=== PATIENT | male | born 1980 | race Two or more races ===

== ENCOUNTER → 2019-06-12 07:15 | Outpatient (CLI) | payer BC, SELFPAY ==
[2019-06-12 06:54] VITALS: BMI 23.5
--- NOTE | 2019-06-12 07:15 | VAS_PTH ---
PATIENT: MAHDI GRACIELA [facility][id number] AGE/SX: 45/M ROOM: RE06/12/[address]: Dr. Tanvir Perez MD : 1980 BED: DIS: SPEC #: [id number] RECD: 06/14/19 07:20 STATUS: STEVEN MALA #: [id number] RACHEL: 06/12/19 07:[address]: Tanvir Perez DEPT: SURGICAL PATHOLOGY RECD BY: Lonnie Perry ENTERED: 06/14/19 11:37 SP TYPE: VAS OTHR DR: Dr. Magdalena George MD Tissues: A - Vas deferens, NOS B - Vas deferens, NOS Procedures: Surgery Specimen Level II HEADER OPERATION: Bilateral partial vasectomy PRE-OP DIAGNOSIS: Sterilization TISSUE SUBMITTED: A - Left vas deferens, B - Right vas deferens MICROSCOPIC DIAGNOSIS A. Left vas deferens, partial vasectomy: Completely transected segment of vas deferens, no pathologic diagnosis. B. Right vas deferens, partial vasectomy: Completely transected segment of vas deferens, no pathologic diagnosis. LATOSHA:sohail 06/15/19 MICROSCOPIC DESCRIPTION Slides are reviewed. GROSS DESCRIPTION A - Received is one container designated left vas deferens. The specimen consists of a tubular piece of drummond soft tissue measuring 2 cm in length and 0.2 cm in diameter. The entire specimen is submitted in one cassette. It will be sectioned at the time of embedding. B - Received is one container designated right vas deferens. The specimen consists of a tubular piece of drummond soft tissue measuring 1.8 cm in length and 0.3 cm in diameter. The entire specimen is submitted in one cassette. It will be sectioned at the time of embedding. / LATOSHA:sohail 06/14/19 TC:4 CPT: 76279 x2
== END ==
PROVIDERS: Family Provider Internal Medicine; PCP Internal Medicine; Referring Provider Surgery; Visit Provider Surgery
DX: Z30.2 Encounter for sterilization (principal)
CPT/HCPCS: 88302

== ENCOUNTER 2020-03-20 17:34 | Emergency (ER) | payer BC, SELFPAY ==
[2019-06-24 07:28] VITALS: BMI 23.5
[2020-03-20 17:35] VITALS: BP 116/73; PULSE 61; RESP 18; TEMP 36.5; O2SAT 100; BMI 29.1
--- NOTE | 2020-03-20 18:44 | RAD_ITS ---
STUDY: X-RAY - RIGHT WRIST TECHNIQUE: 3 view(s) of the wrist were obtained. COMPARISON: None. FINDINGS: Previous ununited fracture of the tip of the ulnar styloid, otherwise normal visualized distal radius and ulna. Normal radiocarpal articulation. Normal distal radioulnar articulation. Normal carpal bones. Normal carpal articulations. Normal carpometacarpal articulation of the thumb. Normal second through fifth carpometacarpal articulations. Normal visualized metacarpal bones. The soft tissue structures are unremarkable. There is no demonstrated acute fracture. RAD/Wrist min 3 Views IMPRESSION: No acute fracture or dislocation. Electronically Signed: Alejandro Anders MD at 19:01 EDT , Service support ,
--- NOTE | 2020-03-20 18:44 | RAD_ITS ---
STUDY: X-RAY - LEFT WRIST REASON FOR EXAM: Male, 39 years old. PAIN S/P FALLING OFF LADDER TECHNIQUE: 3 view(s) of the wrist were obtained. COMPARISON: None. FINDINGS: Normal visualized distal radius and ulna. Normal radiocarpal articulation. Normal distal radioulnar articulation. Normal carpal bones. Normal carpal articulations. Normal carpometacarpal articulation of the thumb. Normal second through fifth carpometacarpal articulations. Normal visualized metacarpal bones. The soft tissue structures are unremarkable. There is no demonstrated acute fracture. RAD/Wrist min 3 Views IMPRESSION: Normal x-ray examination of the wrist. Electronically Signed: Alejandro Anders MD at 19:00 EDT , Service support ,
--- NOTE | 2020-03-20 18:44 | RAD_ITS ---
STUDY: X-RAY - PELVIS AND LEFT HIP REASON FOR EXAM: Male, 39 years old. PAIN S/P FALLING OFF LADDER TECHNIQUE: 3 views of the pelvis and hip. COMPARISON: None. FINDINGS: There is a non-specific bowel gas pattern. Normal visualized soft tissue structures. Normal bilateral iliac wings, sacroiliac joints and visualized sacrum. Normal bilateral superior and inferior pubic rami. Normal pubic symphysis. Normal bilateral ischial tuberosities. Normal visualized femoral head. Normal acetabulum. Normal hip joint. RAD/HIP, UNI W/ Pelvis 2-3 Views IMPRESSION: Normal x-ray examination of the pelvis and hip. Electronically Signed: Alejandro Anders MD at 19:02 EDT , Service support ,
[2020-03-20] MEDS: Diphth,Pertuss(Acell),Tet Vac 0.5 ML Vial IM (19:18)
[2020-03-20] MEDS: HYDROcodone Bitartrate/Apap 5/325 Tablet PO (19:18)
--- NOTE | 2020-03-20 20:06 | ED.VIS.FALL ---
History of Present Illness Chief Complaint: Fall Informant: Patient Occurred: Today Mechanism/Context: - - Fell off ladder Fall from Height (ft): 5 Location: Left buttocks Quality of Pain: Throbbing Narrative: Patient is a 39-year-old male with no significant past medical history presenting with pain in his left buttocks. Patient fell off of 4 to 5 foot ladder earlier today. He hit the ladder while he fell down. He then caught himself with both wrist. He has pain in his wrist, and abrasion to his right elbow as well as significant pain in his left buttocks. He states he did not hit his head had no loss of consciousness. It was mechanical fall. Patient states after the fall he did feel little lightheaded. He went to lay in bed and then could not get out of bed because of pain. He states he started to feel very anxious. This is when he came to the emergency room. He did take ibuprofen prior to arrival. He is not sure his last tetanus was. He denies any other complaints at this time. Past Medical History - Allergies and Home Meds Allergies/Adverse Reactions: Allergies folic acid Allergy (Verified 03/20/20 17:37) Other ITCHING, ERRYTHEMIA, EDEMA Primary Care Physician: Magdalena George MD [Primary Care Provider] - Past Medical History: None Surgical History: no surgical history Lives: Spouse/ Significant Other Smoking Status: Never smoker - Family History Maternal Family History: Family History (Last Reviewed 06/24/19 @ 07:28 by Radha Dunaway) Father Depression Family History: Reports: Diabetes - Controlled Review of Systems General: Denies: Chills, Fever, Sweats Eyes: Denies: Visual changes - bilaterally, Diplopia ENT: Denies: Rhinorrhea, Sore throat Cardiovascular: Denies: Chest pain, Palpitations Respiratory: Denies: Dyspnea, Cough, Dyspnea on exertion Gastrointestinal: Denies: Abdominal pain, Nausea, Vomiting Genitourinary: Denies: Dysuria, Hematuria, Frequency Musculoskeletal: Reports: Extremity Pain - Right elbow, bilateral wrist, left buttocks. Denies: Swelling Skin: Reports: Abrasions - Right elbow. Denies: Rash, Wounds Neurological: Denies: Headache, Weakness, Numbness Hematologic: Denies: Easy bruising, Easy bleeding Physical Exam Vital Signs/Narrative: Vital Signs Temp Pulse Resp BP Pulse Ox 03/20/20 17:35 97.7 F L 61 18 116/73 100 Inital Vital Signs reviewed: Yes General: Well nourished, Well developed Head: Normocephalic, Atraumatic Eyes: Perrl, EOMI ENT: TM's clear, No hemotympanum or drainage, No trauma Neck: Nontender, Full ROM Cardiovascular: Regular rate, Regular rhythm, No murmurs Respiratory: No distress, CTA bilaterally, Chest nontender Abdomen: Soft, Nontender, Nondistended, Normal bowel sounds Back: Nontender Extremeties: Right arm?normal range of motion, no joint abnormalities or effusions. Superficial abrasion over the right olecranon process. Right wrist?normal range of motion however tenderness to palpation and slight abrasion at the right palm. Left arm?normal range of motion, no joint abnormalities or effusions. Left wrist?superficial abrasion over the left palm with normal range of motion and no bony tenderness palpation. Pelvis is stable. Extremities are equal length with no rotation. Left hip has no bony tenderness palpation but he does have significant tenderness palpation of the gluteus muscles. There is an overlying abrasion but no associated hematoma Skin: Normal color, No rash, Trauma - 1 cm abrasion with some bleeding to the right olecranon process 5 cm linear abrasion/ecchymosis of the left buttocks consistent with hitting a ladder step Neurological: Alert, Oriented x3, Cranial nerves II-XII grossly intact, Normal Strength, Normal Sensation, Normal Gait Psychological: Normal affect Diagnostic/Tx/Re-eval Clinical Impression(s) from Imaging Studies Hip/Pelvis X-Ray 03/20/20 18:44 IMPRESSION: Normal x-ray examination of the pelvis and hip. Electronically Signed: Alejandro Anders MD at 19:02 EDT , Service support , Wrist X-Ray 03/20/20 18:44 IMPRESSION: Normal x-ray examination of the wrist. Electronically Signed: Alejandro Anders MD at 19:00 EDT , Service support , Wrist X-Ray 03/20/20 18:44 IMPRESSION: No acute fracture or dislocation. Electronically Signed: Alejandro Anders MD at 19:01 EDT , Service support , - Medical Decision Making Patient is evaluated after mechanical fall off of a ladder. He appears significantly uncomfortable but is otherwise nontoxic and in no acute distress. He is given [place] for pain control. Patient took an NSAID prior to arrival. X-rays obtained not show any acute bony abnormality. Likely these are all soft tissue injuries. Patient be discharged home with a very short course of [place] as well as Motrin 600 for pain control. His tetanus is updated. His elbow abrasion is deeper but does not require laceration repair. Localized wound care is applied. Patient did not hit his head and I do not think head or neck imaging is indicated at this time. Patient is counseled on signs and symptoms requiring return to the emergency room. Patient verbalizes agreement and understand this plan. Patient discharged home in stable and improved condition. ED Disposition - Plan for ED Patient: Disposition: Home or Assisted Living Diagnosis: Left buttock pain, Wrist pain, acute, Abrasion of right elbow, initial encounter Instructions: ED Abrasion, ED SOFT TISSUE CONTUSION, ED Mechanical Fall Prescriptions: Ibuprofen [Motrin] 800 mg PO TID PRN PRN #20 tab PRN Reason: Pain Score 1-10/10 Transmission Status: Received by [id number] Hydrocodone Bitart/Apap 5-325 [[place] 5MG-325MG] 1 tab PO Q6H PRN PRN 3 Days #10 tab PRN Reason: Pain Transmission Status: Received by [id number] Referrals: Magdalena George MD [Primary Care Provider] -
[2020-03-20 20:31] VITALS: BP 112/74; PULSE 73; RESP 18; O2SAT 97
--- OUTSIDE RECORDS SUMMARY | 2020-08-22 08:49 | XMS RPT_ITS | CCD ---
:1980 External Reference #:[id number] Author Organization [facility] Care Team Providers Name Role Phone Eun Peters MD Unavailable Allergies Reported Allergen Reaction(s) Severity Date of Onset Location folic acid Critical, Critical 07-08-2017 - [facility] ([id number]) Problems Category Problem Name Status Date Location Unclassified Appendectomy Active 07-08-2017 - [facility] ([id number]) Results Result Name Value Range Unit Interpretation Flag Date Location vitamin d 25 hydroxy on 2020-08-21 Vitamin D 25 Hydroxy 18.6 31.0-80.0 ng/mL Low 0 [facility] ([id number]) Comment: Result Comment: Classificati on of 25 [place] Vitamin D status: Insufficiency/Moderate Defic iency: < or = 30 ng/mL Sufficiency/Optimal Levels: 31 to 80 ng/mL Toxicity: > 100 ng/mL Test performed by chemilumin escent immunoassay. Performed By: #### B12, VITD ####[facility] [id number] [place], [place] [phone] vitamin b12 on 2019 Cobalamin (Vitamin B12) 796 957-9055 pg/mL Normal [address] [facility] [Mass/Vol] [place] ([id number]) Comment: Performed By: #### B12, VITD ####[facility] [address] [place], [place] [phone] progress on 2020-05 PROGRESS HNO ID: [id number] Normal 05-25-[address] [facility] Author: Mi Borges LPN [place] ([id number]) Service: ? Author Type: ? Type: Progress Notes Filed: 05/25/2020 1:03 PM Note Text: Patient presents for B-12 injection. Denies any problems at this time. Patient brought own medication. Patient instructed on any SE of medication, verbalized understanding and agreed to proceed w ith treatment. Tolerated injection well. Mi Borges LPN PROGRESS HNO ID: [id number] Normal 05-25-[address] [facility] Author: Marquez Cheatham) Thompson [place] ([id number]) Service: ? Author Type: Nurse Practitioner Type: Progress Notes Filed: 05/25/2020 8:56 AM Note Text: The following approved medication requests have been transmi tted electronically. Signed Prescriptions Disp Refills cyanocobalamin 1,000 mcg injection Marquez Riggs APRN.ERIBERTO [facility] (FAMP[facility]) Normal [address] [place] [address] [facility] MAHDI JULEITA ([id number]) 1980 [facility] Date Time Provider Department ([id number]) 05/25/20 12:30 PM [facility] During your visit today, we recorded the following informati on about you: Mi Borges LPN 05/25/2020 1:03 PM Signed Patient presents for B-12 injection. Den ies any problems at this time. Patient brought own medication. Patient instruct ed on any SE of medication, verbalized understanding and agreed to proceed with treatme nt. Tolerated injection well. Mi Borges LPN Referring Provider: SOCRATES GOLDMAN [[id number]] Allergies As of Date: 05/25/2020 Noted Allergy Reaction FOLIC ACID 07/16/2017 9 - Itching Date Reviewed: 05/25/2020 Reviewed by: Mi Borges LPN - Fully Assessed Reason for Visit: B-12 Injection [247] Primary Visit Diagnosis:Vitamin B 12 deficiency [E53.8] Prescriptions as of 05/25/2020 Sig: CYANOCOBALAMIN (VIT B-12) 1,0* Inject 1 mL intramuscularly o * BUPROPION HCL 75 MG TABLET Take 1 tablet by mouth twice * Problem List As Of Date: 05/25/2020 (None) Encounter Status:Closed by MI BORGES LPN on 05/25/20 progress on 2020-04 PROGRESS HNO ID: [id number] Normal 04-11-[address] [facility] Author: Mi Borges LPN [place] ([id number]) Service: ? Author Type: ? Type: Progress Notes Filed: 04/11/2020 12:25 PM Note Text: Patient presents for B-12 injection. Denies any problems at this time. Patient instructed on any SE of medication, verbalized under standing and agreed to proceed with treatment. Brought own medication. To lerated injection well. Mi Borges LPN cnnurse on [facility] Nurse Visit (FAMPWS) Normal 0 [place] [facility] MAHDI JULIETA ([id number]) 1980 [facility] Time Provider Department ([id number]) 04/11/20 12:30 PM [facility] During your visit today, we recorded the following informati on about you: Mi Borges LPN 04/11/2020 12:25 PM Signed Patient presents for B-12 injection. Den ies any problems at this time. Patient instructed on any SE of medication, verbalized understanding and agreed to proceed with treatment. Brought own medication. Tolerated in jection well. Mi Borges LPN Referring Provider: SOCRATES GOLDMAN [[id number]] Allergies As of Date: 04/11/2020 Noted Allergy Reaction FOLIC ACID 07/16/2017 9 - Itching Date Reviewed: 04/11/2020 Reviewed by: Mi Borges LPN - Fully Assessed Reason for Visit: B-12 Injection [247] Primary Visit Diagnosis:Vitamin B 12 deficiency [E53.8] Prescriptions as of 04/11/2020 Sig: CYANOCOBALAMIN (VIT B-12) 1,0* Inject 1 mL intramuscularly o * BUPROPION HCL 75 MG TABLET Take 1 tablet by mouth twice * Problem List As Of Date: 04/11/2020 (None) Encounter Status:Closed by MI BORGES LPN on 04/11/20 progress on 2019-12 PROGRESS HNO ID: [id number] Normal 12-24-[address] [facility] Author: Mi Borges LPN [place] ([id number]) Service: ? Author Type: ? Type: Progress Notes Filed: 12/24/2019 12:34 PM Note Text: Patient presents for B-12 injection. Denies any problems at this time. Brought own medication. Patient instructed on any SE of medi cation, verbalized understanding and agreed to proceed with treatmen t. Tolerated injection well. Mi Borges LPN cnnurse on [facility] Nurse Visit (FAMPWS) Normal 0 [place] [facility] MAHDI JULIETA ([id number]) 1980 [facility] Time Provider Department ([id number]) 12/24/19 12:30 PM [facility] During your visit today, we recorded the following informati on about you: Mi Borges LPN 12/24/2019 12:34 PM Signed Patient presents for B-12 injection. Den ies any problems at this time. Brought own medication. Patient instructed on any SE of medication, verbalized understanding and agreed to proceed with treatme nt. Tolerated injection well. Mi Borges LPN Referring Provider: SOCRATES GOLDMAN [[id number]] Allergies As of Date: 12/24/2019 Noted Allergy Reaction FOLIC ACID 07/16/2017 9 - Itching Date Reviewed: 12/24/2019 Reviewed by: Mi Borges LPN - Fully Assessed Reason for Visit: B-12 Injection [247] Primary Visit Diagnosis:Vitamin B 12 deficiency [E53.8] Prescriptions as of 12/24/2019 Sig: CYANOCOBALAMIN (VIT B-12) 1,0* Inject 1 mL intramuscularly o * BUPROPION HCL 75 MG TABLET Take 1 tablet by mouth twice * Problem List As Of Date: 12/24/2019 (None) Encounter Status:Closed by MI BORGES LPN on 12/24/19 progress on 2019-11 PROGRESS HNO ID: [id number] Normal 11-25-[address] [facility] Author: Mi Borges LPN [place] ([id number]) Service: ? Author Type: ? Type: Progress Notes Filed: 11/25/2019 12:42 PM Note Text: Patient presents for B-12 injection. Denies any problems at this time. Patient instructed on any SE of medication, verbalized under standing and agreed to proceed with treatment. Patient brought own medica tion. Tolerated injection well. Mi Borges LPN cnnurse on [facility] Nurse Visit (FAMPWS) [place] 0 [place] [facility] MAHDI JULIETA ([id number]) 1980 [facility] Time Provider Department ([id number]) 11/25/19 12:45 PM [facility] During your visit today, we recorded the following informati on about you: Mi Borges LPN 11/25/2019 12:42 PM Signed Patient presents for B-12 injection. Den ies any problems at this time. Patient instructed on any SE of medication, verbalized understanding and agreed to proceed with treatment. Patient brought own medication. To lerated injection well. Mi Borges LPN Referring Provider: SOCRATES GOLDMAN [[id number]] Allergies As of Date: 11/25/2019 Noted Allergy Reaction FOLIC ACID 07/16/2017 9 - Itching Date Reviewed: 10/07/2017 Reviewed by: Swathi Pepper LPN - Fully Assessed Reason for Visit: B-12 Injection [247] Primary Visit Diagnosis:Vitamin B 12 deficiency [E53.8] Prescriptions as of 11/25/2019 Sig: CYANOCOBALAMIN (VIT B-12) 1,0* Inject 1 mL intramuscularly o * BUPROPION HCL 75 MG TABLET Take 1 tablet by mouth twice * Problem List As Of Date: 11/25/2019 (None) Encounter Status:Closed by MI BORGES LPN on 11/25/19 progress on 2019-10 PROGRESS HNO ID: [id number] Normal 10-21-[address] [facility] Author: Mi Borges LPN [place] ([id number]) Service: ? Author Type: ? Type: Progress Notes Filed: 10/21/2019 12:34 PM Note Text: Patient presents for B-12 injection. Denies any problems at this time. Patient instructed on any SE of medication, verbalized under standing and agreed to proceed with treatment. Tolerated injection well. Mi Borges LPN obsolete on 2019-10 OBSOLETE Refill (FAMPWS) Normal 10-21-2019 [facility] MAHDI JULIETA ([id number]) 1980 [facility] Date Time Provider Department ([id number]) 10/21/19 [facility] During your visit today, we recorded the following informati on about you: Mi Borges LPN 10/21/2019 12:37 PM Signed Patient requesting to have script for his B-12 sent to local pharmacy so can have filled through his prescription coverage and brought to office for injection. Currently being charged through his medical coverage a co-pay for both the medication and the administrati on (over $50 per month). Please review and advise. Mi Riggs APRN.[employer] 10/21/2019 2:30 PM Signed The following approved medic ation requests have been transmitted electronically. Signed Prescriptions Disp Refills cyanocobalamin (VITAMIN B-12) 1,000 mcg/mL soln 1 mL 5 Sig: Inject 1 mL intramuscularly once every month. 1 DOSE MO NTHLY SONA: No Authorizing Provider: MARQUEZ RIGGS ([employer]) Marquez Riggs APRN.ERIBERTO Alfaro LPN 10/21/2019 3:28 PM Signed Unable to leave message for patient. Voice mailbox full. Ina Calloway, RN, RN 10/21/2019 4:19 PM Signed Attendify message sent to pt of approved refill request. Allergies As of Date: 10/21/2019 Noted Allergy Reaction FOLIC ACID 07/16/2017 9 - Itching Date Reviewed: 10/07/2017 Reviewed by: Swathi Pepper LPN - Fully Assessed Reason for Visit: Refill Request [94] Order(s):cyanocobalamin (VITAMIN B-12) 1,000 mcg/mL solnInje ct 1 mL intramuscularly once every month. 1 DOSE MONTHLYDisp: 1 mLRf l: 5 Prescriptions as of 10/21/2019 Sig: CYANOCOBALAMIN (VIT B-12) 1,0* Inject 1 mL intramuscularly o * BUPROPION HCL 75 MG TABLET Take 1 tablet by mouth twice * Problem List As Of Date: 10/21/2019 (None) Prescriptions ordered this encounter Disp Refills Start End CYANOCOBALAMIN (VIT B-12) 1,000 MCG/* 1 mL 5 10/21/2019 06/0 07/2020 Route: INTRAMUSCULA Sig: Inject 1 mL intramuscularly once every month. 1 DOSE MO NTHLY Medications Discontinued During This Encounter cyanocobalamin 1,000 mcg injection 06/15/2019 10/21/2019 Route: INTRAMUSCULAR Sig: Disc: Reason for discontinue is not on file. cyanocobalamin (VITAMIN B-12) 1,000 * 1 mL 11 06/02/201910/10 Class: In Office Route: INTRAMUSCULAR Sig: Inject 1 mL intramuscularly once every month. 1 DOSE MO NTHLY Disc: Reason for discontinue is not on file. Encounter Status:Closed by CLARENCE CALLOWAY on 10/21/19 [facility] (F[facility]) Normal [address] [place] [address] [facility] MAHDI JULIEAT ([id number]) 1980 M [facility] Time Provider Department ([id number]) 10/21/19 12:30 PM [facility] During your visit today, we recorded the following informati on about you: Mi Borges LPN 10/21/2019 12:34 PM Signed Patient presents for B-12 injection. Den ies any problems at this time. Patient instructed on any SE of medication, verbalized understanding and agreed to proceed with treatment. Tolerated injection well. Mi Borges LPN Referring Provider: SOCRATES GOLDMAN [[id number]] Allergies As of Date: 10/21/2019 Noted Allergy Reaction FOLIC ACID 07/16/2017 9 - Itching Date Reviewed: 10/07/2017 Reviewed by: Swathi Pepper LPN - Fully Assessed Reason for Visit: B-12 Injection [247] Primary Visit Diagnosis:Vitamin B 12 deficiency [E53.8] Prescriptions as of 10/21/2019 Sig: CYANOCOBALAMIN (VIT B-12) 1,0* Inject 1 mL intramuscularly o * BUPROPION HCL 75 MG TABLET Take 1 tablet by mouth twice * Problem List As Of Date: 10/21/2019 (None) Encounter Status:Closed by MI BORGES LPN on 10/21/19 progress on 2019-09 PROGRESS HNO ID: [id number] Normal 09-22-[address] [facility] Author: Mi Borges LPN [place] ([id number]) Service: ? Author Type: ? Type: Progress Notes Filed: 09/22/2019 12:30 PM Note Text: Patient presents for B-12 injection. Denies any problems at this time. Patient instructed on any SE of medication, verbalized under standing and agreed to proceed with treatment. Tolerated injection well. Mi Borges LPN cnnurse on [facility] Nurse Visit (FAMPWS) Normal [address] [place] [address] [facility] MAHDI JULIETA ([id number]) 1980 M [facility] Time Provider Department ([id number]) 09/22/19 12:30 PM [facility] During your visit today, we recorded the following informati on about you: Mi Borges LPN 09/22/2019 12:30 PM Signed Patient presents for B-12 injection. Den ies any problems at this time. Patient instructed on any SE of medication, verbalized understanding and agreed to proceed with treatment. Tolerated injection well. Mi Borges LPN Referring Provider: SOCRATES GOLDMAN [[id number]] Allergies As of Date: 09/22/2019 Noted Allergy Reaction FOLIC ACID 07/16/2017 9 - Itching Date Reviewed: 10/07/2017 Reviewed by: Swathi Pepper LPN - Fully Assessed Reason for Visit: B-12 Injection [247] Primary Visit Diagnosis:Vitamin B 12 deficiency [E53.8] Prescriptions as of 09/22/2019 Sig: CYANOCOBALAMIN (VIT B-12) 1,0* Inject 1 mL intramuscularly o * BUPROPION HCL 75 MG TABLET Take 1 tablet by mouth twice * Problem List As Of Date: 09/22/2019 (None) Encounter Status:Closed by MI BORGES LPN on 09/22/19 office visit: f/u s/pt lap appendectomy 06/05/17 on 2017-07-08 Documentation of Done Invalid 07-08-2017 [facility] Surgical current medications Interpretation Code 07-08-2017 [facility] (procedure) ([id number]) Documentation of T Invalid 07-08-2017 [facility] Surgical current medications Interpretation Code 07-08-2017 [facility] (procedure) ([id number]) Fall risk assessment No Invalid [facility] Surgical Interpretation Code 07-08-2017 [facility] ([id number]) Protein mass conc Done 07-08-2017 [facility] 07-08-2017 [facility] ([id number]) Protein mass conc T 07-08-2017 [facility] Surgical 07-08-2017 [facility] ([id number]) Vital Signs Vital Sign Description Value / Unit Date Location The following section is limited to 5 en tries per type and includes entries from the following time range: [id number] - [id number] 9. BMI (Body Mass Index) 22.05 kg/m2 07-08-2017 - 07-08-2017 [facility] ([id number]) Body Temperature 97.9 [degF] 07-08-2017 - 07-08-2017 [facility] ([id number]) BP Diastolic 68 mm[Hg] 07-08-2017 - 07-08-2017 [facility] ([id number]) BP Systolic 110 mm[Hg] 07-08-2017 - 07-08-2017 [facility] ([id number]) Height 177.98 cm 07-08-2017 - 07-08-2017 [facility] ([id number]) Pulse (Heart Rate) 68 /min 07-08-2017 - 07-08-2017 [facility] S [facility] ([id number]) Respiratory Rate 18 /min 07-08-2017 - 07-08-2017 [facility] ([id number]) Weight 69.85 kg 07-08-2017 - 07-08-2017 [facility] ([id number]) Procedures Procedure Name Date Provider Location Appendectomy 07-08-2017 [facility] ([id number]) Plan of Treatment Plan Description Date Location Appointment Appointment 07-08-2017 - [facility] 07-08-2017 ([id number]) Follow Up as needed Follow Up as needed 07-08-2017 - [facility] 07-08-2017 ([id number]) Summary Purpose Family History No Family History Records Found Advance Directives No Advanced Directives Records Found Additional Source Comments FOR RECORDS PERTAINING TO PATIENTS WHO ARE OR HAVE BEEN ENROLLED IN A CHEMICAL DEPENDENCY/SUBSTANCE ABUSE PROGRAM, SOME INFORMATION MAY BE OMITTED. This clinical summary was aggregated from multiple sources. Caution should be exercised in using it in the provision of clinical care. This summary normalizes information from multiple sources, and as a consequence, information in this document may materially changethe coding, format and clinical context of patient data. In addition, data may be omittedin some cases. CLINICAL DECISIONS SHOULD BE BASED ON THE PRIMARY CLINICAL RECORDS. [facility] provides no warranty or guarantee of the accuracy or completeness of information in this document. UNRECOGNIZED CONTENT PROVIDED BELOW FOR UNRECOGNIZED SECTION No Status Records Found UNRECOGNIZED CONTENT PROVIDED BELOW FOR UNRECOGNIZED SECTION INFORMATION SOURCE DATE CREATED AUTHOR AUTHOR'S ORGANIZATIO N 08/22/2020 [facility] hannah
--- OUTSIDE RECORDS SUMMARY | 2020-08-22 08:52 | XMS RPT_ITS | CCD ---
:1980 External Reference #:[id number] Author Organization [facility] Care Team Providers Name Role Phone Eun Peters MD Unavailable Allergies Reported Allergen Reaction(s) Severity Date of Onset Location folic acid Critical, Critical 07-08-2017 - [facility] ([id number]) Problems Category Problem Name Status Date Location Unclassified Appendectomy Active 07-08-2017 - [facility] ([id number]) Results Result Name Value Range Unit Interpretation Flag Date Location vitamin d 25 hydroxy on 2020-08-21 Vitamin D 25 Hydroxy 18.6 31.0-80.0 ng/mL Low 0 [facility] ([id number]) Comment: Result Comment: Classificati on of 25 [place] Vitamin D status: Insufficiency/Moderate Defic iency: < or = 30 ng/mL Sufficiency/Optimal Levels: 31 to 80 ng/mL Toxicity: > 100 ng/mL Test performed by chemilumin escent immunoassay. Performed By: #### B12, VITD ####[facility] [id number] [place], [place] [phone] vitamin b12 on 2019 Cobalamin (Vitamin B12) 121 108-6095 pg/mL Normal 2019 [facility] [Mass/Vol] [place] ([id number]) Comment: Performed By: #### B12, VITD ####[facility] [id number] [place], [place] [phone] progress on 2020-05 PROGRESS HNO ID: [id number] Normal 05-25-2020 [facility] Author: Mi Borges LPN [place] ([id number]) Service: ? Author Type: ? Type: Progress Notes Filed: 05/25/2020 1:03 PM Note Text: Patient presents for B-12 injection. Denies any problems at this time. Patient brought own medication. Patient instructed on any SE of medication, verbalized understanding and agreed to proceed w ith treatment. Tolerated injection well. Mi Borges LPN PROGRESS HNO ID: [id number] Normal 05-25-2020 [facility] Author: Marquez Cheatham) Thompson [place] ([id number]) Service: ? Author Type: Nurse Practitioner Type: Progress Notes Filed: 05/25/2020 8:56 AM Note Text: The following approved medication requests have been transmi tted electronically. Signed Prescriptions Disp Refills cyanocobalamin 1,000 mcg injection Marquez Riggs APRN.ERIBERTO [facility]) Normal [address] [place] [address] [facility] MAHDI JULIETA ([id number]) 1980 [facility] Date Time Provider Department ([id number]) 05/25/20 12:30 PM [facility] During your visit today, we recorded the following informati on about you: Mi Borges LPN 05/25/2020 1:03 PM Signed Patient presents for B-12 injection. Den ies any problems at this time. Patient brought own medication. Patient instruct ed on any SE of medication, verbalized understanding and agreed to proceed with treatme nt. Tolerated injection well. Mi Borges LPN Referring Provider: SOCRATES GOLDMAN [[id number]] Allergies As of Date: 05/25/2020 Noted Allergy [...] 05/25/20 progress on 2020-04 PROGRESS HNO ID: [id number] Normal 04-11-2020 [facility] Author: Mi Borges LPN [place] ([id number]) Service: ? Author Type: ? Type: Progress Notes Filed: 04/11/2020 12:25 PM Note Text: Patient presents for B-12 injection. Denies any problems at this time. Patient instructed on any SE of medication, verbalized under standing and agreed to proceed with treatment. Brought own medication. To lerated injection well. Mi Borges LPN cnnurse on [facility] Nurse Visit (FAMPWS) Normal 0 [place] [facility] MAHDI JULIETA ([id number]) 1980 [facility] Time Provider Department ([id number]) 04/11/20 12:30 PM [facility] During your visit today, we recorded the following informati on about you: Mi Borges LPN 04/11/2020 12:25 PM Signed Patient presents for B-12 injection. Den ies any problems at this time. Patient instructed on any SE of medication, verbalized understanding and agreed to proceed with treatment. Brought own medication. Tolerated in jection well. Mi Borges LPN Referring Provider: SOCRATES GOLDMAN [[id number]] Allergies As of Date: 04/11/2020 Noted Allergy [...] 04/11/20 progress on 2019-12 PROGRESS HNO ID: [id number] Normal 12-24-2019 [facility] Author: Mi Borges LPN [place] ([id number]) Service: ? Author Type: ? Type: Progress Notes Filed: 12/24/2019 12:34 PM Note Text: Patient presents for B-12 injection. Denies any problems at this time. Brought own medication. Patient instructed on any SE of medi cation, verbalized understanding and agreed to proceed with treatmen t. Tolerated injection well. Mi Borges LPN cnnurse on [facility] Nurse Visit (FAMPWS) Normal 0 [place] [facility] MAHDI JULIETA ([id number]) 1980 [facility] Time Provider Department ([id number]) 12/24/19 12:30 PM [facility] During your visit today, we recorded the following informati on about you: Mi Borges LPN 12/24/2019 12:34 PM Signed Patient presents for B-12 injection. Den ies any problems at this time. Brought own medication. Patient instructed on any SE of medication, verbalized understanding and agreed to proceed with treatme nt. Tolerated injection well. Mi Borges LPN Referring Provider: SOCRATES GOLDMAN [[id number]] Allergies As of Date: 12/24/2019 Noted Allergy [...] 12/24/19 progress on 2019-11 PROGRESS HNO ID: [id number] Normal 11-25-2019 [facility] Author: Mi Borges LPN [place] ([id number]) Service: ? Author Type: ? Type: Progress Notes Filed: 11/25/2019 12:42 PM Note Text: Patient presents for B-12 injection. Denies any problems at this time. Patient instructed on any SE of medication, verbalized under standing and agreed to proceed with treatment. Patient brought own medica tion. Tolerated injection well. Mi Borges LPN cnnurse on [facility] Nurse Visit (FAMPWS) [place] 0 [place] [facility] MAHDI JULIETA ([id number]) 1980 [facility] Time Provider Department ([id number]) 11/25/19 12:45 PM [facility] During your visit today, we recorded the following informati on about you: Mi Borges LPN 11/25/2019 12:42 PM Signed Patient presents for B-12 injection. Den ies any problems at this time. Patient instructed on any SE of medication, verbalized understanding and agreed to proceed with treatment. Patient brought own medication. To lerated injection well. Mi Borges LPN Referring Provider: SOCRATES GOLDMAN [[id number]] Allergies As of Date: 11/25/2019 Noted Allergy [...] 11/25/19 progress on 2019-10 PROGRESS HNO ID: [id number] Normal 10-21-2019 [facility] Author: Mi Borges LPN [place] ([id number]) Service: ? Author Type: ? Type: Progress Notes Filed: 10/21/2019 12:34 PM Note Text: Patient presents for B-12 injection. Denies any problems at this time. Patient instructed on any SE of medication, verbalized under standing and agreed to proceed with treatment. Tolerated injection well. Mi Borges LPN obsolete on 2019-10 OBSOLETE Refill (FAMPWS) Normal 10-21-2019 [facility] MAHDI JULIETA ([id number]) 1980 [facility] Date Time Provider Department ([id number]) 10/21/19 [facility] During your visit today, we recorded the [...] month). Please review and advise. Mi Riggs APRN.[employer]IC 10/21/2019 2:30 PM Signed The following approved medic ation requests have been transmitted electronically. Signed Prescriptions Disp Refills cyanocobalamin (VITAMIN B-12) 1,000 mcg/mL soln 1 mL 5 Sig: Inject 1 mL intramuscularly once every month. 1 DOSE MO NTHLY SONA: No Authorizing Provider: MARQUEZ RIGGS ([employer]CH[employer]IC) Marquez Riggs APRN.ERIBERTO Alfaro LPN 10/21/2019 3:28 PM Signed Unable to leave message for patient. Voice mailbox full. Ina Calloway, RN, RN 10/21/2019 4:19 PM Signed Vulevú message sent to pt of approved refill [...] by CLARENCE CALLOWAY on 10/21/19 [facility] ([facility]) Normal [address] [place] [address] [facility] MAHDI JULIETA ([id number]) 1980 [facility] Time Provider Department ([id number]) 10/21/19 12:30 PM [facility] During your visit today, we recorded the following informati on about you: Mi Borges LPN 10/21/2019 12:34 PM Signed Patient presents for B-12 injection. Den ies any problems at this time. Patient instructed on any SE of medication, verbalized understanding and agreed to proceed with treatment. Tolerated injection well. Mi Borges LPN Referring Provider: SOCRATES GOLDMAN [[id number]] Allergies As of Date: 10/21/2019 Noted Allergy [...] 10/21/19 progress on 2019-09 PROGRESS HNO ID: [id number] Normal 09-22-2019 [facility] Author: Mi Borges LPN [place] ([id number]) Service: ? Author Type: ? Type: Progress Notes Filed: 09/22/2019 12:30 PM Note Text: Patient presents for B-12 injection. Denies any problems at this time. Patient instructed on any SE of medication, verbalized under standing and agreed to proceed with treatment. Tolerated injection well. Mi Borges LPN cnnurse on [facility] Nurse Visit (FAMPWS) Normal [address] [place] [address] [facility] MAHDI JULIETA ([id number]) 1980 [facility] Time Provider Department ([id number]) 09/22/19 12:30 PM MD [facility] During your visit today, we recorded the following informati on about you: Mi Borges LPN 09/22/2019 12:30 PM Signed Patient presents for B-12 injection. Den ies any problems at this time. Patient instructed on any SE of medication, verbalized understanding and agreed to proceed with treatment. Tolerated injection well. Mi Borges LPN Referring Provider: SOCRATES GOLDMAN [[id number]] Allergies As of Date: 09/22/2019 Noted Allergy [...] on 2017-07-08 Documentation of Done Invalid 07-08-2017 [facility] Surgical current medications Interpretation Code 07-08-2017 [facility] (procedure) ([id number]) Documentation of T Invalid 07-08-2017 [facility] Surgical current medications Interpretation Code 07-08-2017 [facility] (procedure) ([id number]) Fall risk assessment No Invalid [facility] Interpretation Code 07-08-2017 [facility] ([id number]) Protein mass conc Done 07-08-2017 [facility] 07-08-2017 [facility] ([id number]) Protein mass conc T 07-08-2017 [facility] Surgical 07-08-2017 [facility] ([id number]) Vital Signs Vital Sign Description Value / Unit Date Location The following section is limited to 5 en tries per type and includes entries from the following time range: 20170708 - [id number] 9. BMI (Body Mass Index) 22.05 kg/m2 07-08-2017 - 07-08-2017 [facility] ([id number]) Body Temperature 97.9 [degF] 07-08-2017 - 07-08-2017 [facility] ([id number]) BP Diastolic 68 mm[Hg] 07-08-2017 - 07-08-2017 [facility] ([id number]) BP Systolic 110 mm[Hg] 07-08-2017 - 07-08-2017 [facility] ([id number]) Height 177.98 cm 07-08-2017 - 07-08-2017 [facility] ([id number]) Pulse (Heart Rate) 68 /min 07-08-2017 - 07-08-2017 [facility] ([id number]) Respiratory Rate 18 /min 07-08-2017 - 07-08-2017 [facility] ([id number]) Weight 69.85 kg 07-08-2017 - 07-08-2017 [facility] ([id number]) Procedures Procedure Name Date Provider Location Appendectomy 07-08-2017 [facility] ([id number]) Plan of Treatment Plan Description Date Location Appointment Appointment 07-08-2017 - [facility] 07-08-2017 ([id number]) Follow Up as needed Follow Up as needed 07-08-2017 - [facility] 07-08-2017 ([id number]) Summary Purpose Family History No Family History [...] BE BASED ON THE PRIMARY CLINICAL RECORDS. [facility] provides no warranty or guarantee of the accuracy or completeness of information in this document. UNRECOGNIZED CONTENT PROVIDED BELOW FOR UNRECOGNIZED SECTION No Status Records Found UNRECOGNIZED CONTENT PROVIDED BELOW FOR UNRECOGNIZED SECTION INFORMATION SOURCE DATE CREATED AUTHOR AUTHOR'S ORGANIZATIO N 08/22/2020 [facility] hannah
== END 2020-03-20 20:33 | disposition home or self-care (01) ==
PROVIDERS: Emergency Provider Emergency Medicine; PCP Internal Medicine
DX: S50.311A Abrasion of right elbow, initial encounter (principal); W11.XXXA Fall on and from ladder, initial encounter; M25.532 Pain in left wrist
CPT/HCPCS: 73110; 73502; 90715; 99283